=== PATIENT | female | born 1990 | race Two or more races ===

== ENCOUNTER 2021-03-30 02:36 | Emergency (ER) | payer OTHER ==
[~2021-03-30] VITALS: Ht 160 cm; Wt 59.1 kg
[2021-03-30 05:35] VITALS: BP 123/85
== END 2021-03-30 05:33 | disposition home or self-care (01) ==
LOC: EMS 02:37
DX: S10.91XA Abrasion of unspecified part of neck, initial encounter (principal); H11.31 Conjunctival hemorrhage, right eye; S01.311A Laceration without foreign body of right ear, initial encounter; Y04.0XXA Assault by unarmed brawl or fight, initial encounter; Y93.89 Activity, other specified; Y92.89 Other specified places as the place of occurrence of the external cause; Y99.8 Other external cause status
CPT/HCPCS: 99283